=== PATIENT | female | born 1985 | race Caucasian/White ===

== ENCOUNTER 2019-08-14 06:00 | Inpatient (IN) | payer MEDICAID, OTHER ==
[~2019-08-14] VITALS: Ht 172.3 cm; Wt 72.6 kg
[2019-08-14] VITALS (55 sets, daily range): BP systolic 93–123; BP diastolic 58–84
[2019-08-14] MEDS ORDERED: D5 LR IV SOLUTION 1,000 ML IV ONE (07:12)
[2019-08-14] MEDS: D5 LR IV SOLUTION 1,000 ML IV SCH ×2 (07:40→12:23)
[2019-08-14 07:58] LABS: BASOPHILS % (AUTO) 0 % (0-10); EOSINOPHILS # (AUTO) 0.1 10^3/uL (0.0-0.3); EOSINOPHILS % (AUTO) 1 % (0-10); HEMATOCRIT 38 % (35-52); HEMOGLOBIN 12.9 G/DL (11.5-16.0); LYMPHOCYTES # (AUTO) 1.7 X 10^3 (1.0-4.0); LYMPHOCYTES % (AUTO) 20 % (12-44); MEAN CORPUSCULAR HEMOGLOBIN 31 PG (25-34); MEAN CORPUSCULAR HGB CONC 34 G/DL (32-36); MEAN CORPUSCULAR VOLUME 91 FL (80-99); MEAN PLATELET VOLUME 11.7 FL (7.4-10.4); MONOCYTES # (AUTO) 0.8 X 10^3 (0.0-1.0); MONOCYTES % (AUTO) 10 % (0-12); NEUTROPHILS # (AUTO) 5.9 X 10^3 (1.8-7.8); NEUTROPHILS % (AUTO) 69 % (42-75); PLATELET COUNT 232 10^3/uL (130-400); RED CELL DISTRIBUTION WIDTH 13.1 % (10.0-14.5); WHITE BLOOD COUNT 8.6 10^3/uL (4.3-11.0)
[2019-08-14] MEDS ORDERED: OXYTOCIN/NORMAL SALINE 500 ML IV SCH ×2 (08:02→19:31)
[2019-08-14] MEDS ORDERED: SUFENTA 0.6MCG/ML BUPIVA 0.125 100 ML ONE (09:19)
[2019-08-14] MEDS ORDERED: BUPIVACAINE 0.25% 30 ML (SENSORCAINE) VIAL ONE ×2 (09:31→15:44)
[2019-08-14] MEDS ORDERED: fentaNYL INJECTION 100 MCG/2 ML AMP ONE (09:31)
[2019-08-14] MEDS ORDERED: LACTATED RINGERS 1,000 ML IV SCH (09:37)
[2019-08-14] MEDS ORDERED: diphenhydrAMINE 50 MG/ML INJ (BENADRYL) IV PRN (09:45)
[2019-08-14] MEDS ORDERED: ONDANSETRON 4 MG/2 ML (SDV) Z0FRAN IV PRN (09:45)
[2019-08-14] MEDS ORDERED: NALOXONE 0.4 MG/ML 1 ML (NARCAN) VIAL IV PRN ×2 (09:45)
[2019-08-14] MEDS ORDERED: METOCLOPRAMIDE INJ 10 MG/2 ML (REGLAN) IV PRN (09:45)
[2019-08-14] MEDS: EPIDURAL (SUFENTA 0.6MCG/ML BUPIVA 0.125%) 100 ML BAG EPI PRN ×2 (10:02→16:30)
--- NOTE | 2019-08-14 18:16 | History & Physical-OB/GYN ---
History of Present Illness History of Present Illness Reason for visit/HPI Ms. Hull at 39 1/7 weeks gestation was admitted for Pitocin Induction of Labor Date of Admission Aug 14, 2019 at 06:14 Date Seen by a Provider: Aug 14, 2019 Time Seen by a Provider: 09:00 I consulted on this patient on 08/14/19 18:11 Attending Physician Devonte Barr DO Admitting Physician Devonte Barr DO Consult Allergies and Home Medications Allergies Coded Allergies: No Known Drug Allergies (Unverified , 08/14/19) Patient Home Medication List Home Medication List Reviewed: Yes Past Gxekgmh-[id number]-Rjwvdb Hx Patient Social History Marrital Status: single Number of Children: 2 Number of living children: 2 Employed/Student: employed Alcohol Use: Denies Use Recreational Drug Use: No Smoking Status: Never a Smoker Physical Abuse Screen: No Sexual Abuse: No Recent Foreign Travel: No Contact w/other who traveled: No Recent Hopitalizations: No Recent Infectious Disease Expo: No Immunizations Up To Date Date of Influenza Vaccine: Jun 16, 2019 Seasonal Allergies Seasonal Allergies: Yes Surgeries Yes Respiratory No Cardiovascular No Neurological No Reproductive System : Yes Expected Date of Delivery: Aug 20, 2019 Genitourinary No Gastrointestinal No Endocrine History of Endocrine Disorders: No HEENT History of HEENT Disorders: No Cancer No Psychosocial History of Psychiatric Problem: No Integumentary History of Skin or Integumenta: No Blood Transfusions History of Blood Disorders: No Adverse Reaction to a Blood Tr: No Family Medical History Family Hx: Diabetes mellitus 19 FATHER Hypertension 19 FATHER Seizure disorder G8 SISTER Review of Systems Constitutional: see HPI Physical Exam Physical Exam Vital Signs Vital Signs Date Time Temp Pulse Resp B/P (MAP) Pulse Ox O2 Delivery O2 Flow Rate FiO2 08/14/19 16:00 102/61 (75) Room Air 08/14/19 15:45 73 119/78 (92) Room Air 08/14/19 15:30 74 108/73 (85) Room Air 08/14/19 15:15 79 108/73 (85) Room Air 08/14/19 15:00 68 102/70 (81) Room Air 08/14/19 14:45 69 102/68 (79) Room Air 08/14/19 14:30 36.6 71 103/67 (79) Room Air 08/14/19 14:15 67 109/73 (85) Room Air 08/14/19 14:00 74 108/74 (85) Room Air 08/14/19 13:45 36.6 83 16 108/70 (83) Room Air 08/14/19 13:30 75 110/73 (85) Room Air 08/14/19 13:15 75 104/67 (79) Room Air 08/14/19 13:00 68 112/67 (82) Room Air 08/14/19 12:45 75 117/70 (86) Room Air 08/14/19 12:30 73 111/72 (85) Room Air 08/14/19 12:15 36.2 69 114/62 (79) Room Air 08/14/19 12:00 92 16 114/77 (89) Room Air 08/14/19 11:45 70 120/78 (92) Room Air 08/14/19 11:30 81 93/58 (70) 99 Room Air 08/14/19 11:15 68 99/59 (72) 98 Room Air 08/14/19 11:00 68 96/58 (71) 98 Room Air 08/14/19 10:45 36.6 82 16 123/62 (82) 98 Room Air 08/14/19 10:35 69 113/63 (80) 97 Room Air 08/14/19 10:30 75 109/73 (85) 98 Room Air 08/14/19 10:25 72 112/72 (85) 97 Room Air 08/14/19 10:20 80 115/72 (86) 97 Room Air 08/14/19 10:15 90 109/72 (84) 97 Room Air 08/14/19 10:10 86 116/78 (91) 99 Room Air 08/14/19 10:06 93 115/77 (90) 99 Room Air 08/14/19 10:03 100 118/84 (95) Room Air 08/14/19 10:00 90 18 115/70 (85) 100 Room Air 08/14/19 09:45 36.4 87 118/80 (93) Room Air 08/14/19 09:30 74 109/70 (83) Room Air 08/14/19 09:15 81 108/78 (88) Room Air 08/14/19 09:00 73 16 107/71 (83) Room Air 08/14/19 08:45 81 108/70 (83) Room Air 08/14/19 08:30 94 108/70 (83) Room Air 08/14/19 08:00 36.5 08/14/19 07:30 97 16 111/79 (90) 98 Room Air 08/14/19 07:30 36.5 97 16 98 Room Air Capillary Refill : Less Than 3 Seconds Labs Laboratory Tests 08/14/19 07:40: White Blood Count 8.6, Red Blood Count 4.17L, Hemoglobin 12.9, Hematocrit 38, Mean Corpuscular Volume 91, Mean Corpuscular Hemoglobin 31, Mean Corpuscular Hemoglobin Concent 34, Red Cell Distribution Width 13.1, Platelet Count 232, Mean Platelet Volume 11.7H, Neutrophils (%) (Auto) 69, Lymphocytes (%) (Auto) 20, Monocytes (%) (Auto) 10, Eosinophils (%) (Auto) 1, Basophils (%) (Auto) 0, Neutrophils # (Auto) 5.9, Lymphocytes # (Auto) 1.7, Monocytes # (Auto) 0.8, Eosinophils # (Auto) 0.1, Basophils # (Auto) 0.0, Glucose Level 82 08/14/19 12:15: Glucometer 77 08/14/19 16:10: Glucometer 76 General Appearance: No Apparent Distress, WD/WN Respiratory: Chest Non Tender, Lungs Clear, Normal Breath Sounds Cardiovascular: Regular Rate, Rhythm, No Murmur Abdominal: normal bowel sounds Labia: WNL Vagina: WNL Cervix: WNL Cervix OS: other (1 cm/50%/-3 Vertex/Intact) Extremity: Normal Inspection, Non Tender Assessment/Plan Assessment and Plan Assessment: Intrauterine at 39 1/7 weeks 2. GDM (diet controlled) Plan: Pitocin Induction of Labor. AROM. Epidural anesthesia. I expect a normal spontaneous vaginal delivery Admission Diagnosis Admission Status: Inpatient Order (span 2 midnights) Reason for Inpatient Admission: Intrauterine at 39 1/7 weeks 2. GDM (diet controlled) Clinical Quality Measures DVT/VTE Risk/Contraindication: Risk Factor Score Per Nursin RFS Level Per Nursing on Admit: 1=Low/No VTE PPX DEVONTE BARR DO Aug 14, 2019 18:16
--- NOTE | 2019-08-14 18:19 | Labor Progress Note ---
Labor Progress Note Labor Progress Note Date Seen by Provider: Aug 14, 2019 Time Seen by Provider: 18:00 Subjective: Pt denies complaints. Objective: (Can we insert 24 hour vitals here?) Cervical exam: [6 cm/80/-3 Vertex/AROM] Consistency: [80%] Position: [-3] Presentation: [Vertex] heart tones: [130] beats per minute, [moderate] variability, [] reactive Tocometer: [3] ctx/10 minutes Assessment/Plan: Trisha Hull is a (34 /Para / ,Gestational Age (wks)39 here for []. CEFM/TOCO Continue pitocin/[] Anesthesia:[Epidural] Anticipate vaginal delivery. Noted bloody show, strip continues to be reactive. Occasional variable deceleration. Vitals - Labs Vital Signs - I&O Vital Signs Date Time Temp Pulse Resp B/P (MAP) Pulse Ox O2 Delivery O2 Flow Rate FiO2 08/14/19 16:00 102/61 (75) Room Air 08/14/19 15:45 73 119/78 (92) Room Air 08/14/19 15:30 74 108/73 (85) Room Air 08/14/19 15:15 79 108/73 (85) Room Air 08/14/19 15:00 68 102/70 (81) Room Air 08/14/19 14:45 69 102/68 (79) Room Air 08/14/19 14:30 36.6 71 103/67 (79) Room Air 08/14/19 14:15 67 109/73 (85) Room Air 08/14/19 14:00 74 108/74 (85) Room Air 08/14/19 13:45 36.6 83 16 108/70 (83) Room Air 08/14/19 13:30 75 110/73 (85) Room Air 08/14/19 13:15 75 104/67 (79) Room Air 08/14/19 13:00 68 112/67 (82) Room Air 08/14/19 12:45 75 117/70 (86) Room Air 08/14/19 12:30 73 111/72 (85) Room Air 08/14/19 12:15 36.2 69 114/62 (79) Room Air 08/14/19 12:00 92 16 114/77 (89) Room Air 08/14/19 11:45 70 120/78 (92) Room Air 08/14/19 11:30 81 93/58 (70) 99 Room Air 08/14/19 11:15 68 99/59 (72) 98 Room Air 08/14/19 11:00 68 96/58 (71) 98 Room Air 08/14/19 10:45 36.6 82 16 123/62 (82) 98 Room Air 08/14/19 10:35 69 113/63 (80) 97 Room Air 08/14/19 10:30 75 109/73 (85) 98 Room Air 08/14/19 10:25 72 112/72 (85) 97 Room Air 08/14/19 10:20 80 115/72 (86) 97 Room Air 08/14/19 10:15 90 109/72 (84) 97 Room Air 08/14/19 10:10 86 116/78 (91) 99 Room Air 08/14/19 10:06 93 115/77 (90) 99 Room Air 08/14/19 10:03 100 118/84 (95) Room Air 08/14/19 10:00 90 18 115/70 (85) 100 Room Air 08/14/19 09:45 36.4 87 118/80 (93) Room Air 08/14/19 09:30 74 109/70 (83) Room Air 08/14/19 09:15 81 108/78 (88) Room Air 08/14/19 09:00 73 16 107/71 (83) Room Air 08/14/19 08:45 81 108/70 (83) Room Air 08/14/19 08:30 94 108/70 (83) Room Air 08/14/19 08:00 36.5 08/14/19 07:30 97 16 111/79 (90) 98 Room Air 08/14/19 07:30 36.5 97 16 98 Room Air Labs Laboratory Tests 08/14/19 07:40: White Blood Count 8.6, Red Blood Count 4.17L, Hemoglobin 12.9, Hematocrit 38, Mean Corpuscular Volume 91, Mean Corpuscular Hemoglobin 31, Mean Corpuscular Hemoglobin Concent 34, Red Cell Distribution Width 13.1, Platelet Count 232, Mean Platelet Volume 11.7H, Neutrophils (%) (Auto) 69, Lymphocytes (%) (Auto) 20, Monocytes (%) (Auto) 10, Eosinophils (%) (Auto) 1, Basophils (%) (Auto) 0, Neutrophils # (Auto) 5.9, Lymphocytes # (Auto) 1.7, Monocytes # (Auto) 0.8, Eosinophils # (Auto) 0.1, Basophils # (Auto) 0.0, Glucose Level 82 08/14/19 12:15: Glucometer 77 08/14/19 16:10: Glucometer 76 ANDREA ORTIZ DO Aug 14, 2019 18:19
[2019-08-14] MEDS ORDERED: LIDOCAINE 1% INJ 20 ML 20 ML VIAL ONE ×2 (18:49→19:05)
--- NOTE | 2019-08-14 19:37 | OB Labor & Delivery Record ---
Vag Delivery Note Vag Delivery Note Date of Delivery: 08/14/19 Preoperative Diagnosis: Trisha Hull is a (34 /Para / ,Gestational Age (wks)39with [Gestational Diabetes--diet controlled] Postoperative Diagnosis: Same Surgeon: ANDREA ORTIZ Cardiopulmonary Technician And Eeg Tech: [] Anesthesia: [Epidural and Local] Delivery Type: [Normal Vaginal Delivery with Midline Episiotomy] Findings: [] Viable [Male] infant, apgars [], weight [7 lb 7 oz] Lacerations: Midline episiotomy and standard repair Intact placenta with 3 vessel cord. No nuchal cord, body cord or shoulder dystocia Estimated Blood Loss: [300] ml Complications: None Condition: Stable Description of Procedure: The patient is a 34 year old female who presented [for Pitocin Induction of Labor]. She was admitted and informed consent was obtained. Her labor course was unremarkable. She progressed to complete dilatation and began to push. She was then set up for delivery. The 's head was delivered atraumatically in the [JENNIFER] position. The shoulders and remainder of the 's body were then delivered without difficulty. Upon delivery, the head was held below the level of the perineum and the mouth and nares were bulb suctioned. The cord was doubly clamped and cut and the infant was handed off to the pediatric staff. An intact placenta with 3-vessel cord delivered via Daina and there was found to be minimal bleeding.~ Vigorous fundal massage was performed and the fundus was found to be firm. IV oxytocin was given. Examination of the vagina and perineum revealed only the midline episiotomy no extended laceration repaired in the usual fashion with 2-0 and 3-0 vicryl suture. Following the repair, sponge, instrument and needle counts were correct. Mom and baby were both in stable condition in the labor suite. Vitals - Labs Vital Signs - I&O Vital Signs Date Time Temp Pulse Resp B/P (MAP) Pulse Ox O2 Delivery O2 Flow Rate FiO2 08/14/19 18:00 70 100/63 (75) Room Air 08/14/19 17:45 70 120/75 (90) Room Air 08/14/19 17:30 77 115/81 (92) Room Air 08/14/19 17:15 75 108/73 (85) Room Air 08/14/19 17:00 36.3 78 16 115/71 (86) Room Air 08/14/19 16:45 74 108/73 (85) Room Air 08/14/19 16:30 76 112/74 (87) Room Air 08/14/19 16:15 Room Air 08/14/19 16:00 102/61 (75) Room Air 08/14/19 15:45 73 119/78 (92) Room Air 08/14/19 15:30 74 108/73 (85) Room Air 08/14/19 15:15 79 108/73 (85) Room Air 08/14/19 15:00 68 102/70 (81) Room Air 08/14/19 14:45 69 102/68 (79) Room Air 08/14/19 14:30 36.6 71 103/67 (79) Room Air 08/14/19 14:15 67 109/73 (85) Room Air 08/14/19 14:00 74 108/74 (85) Room Air 08/14/19 13:45 36.6 83 16 108/70 (83) Room Air 08/14/19 13:30 75 110/73 (85) Room Air 08/14/19 13:15 75 104/67 (79) Room Air 08/14/19 13:00 68 112/67 (82) Room Air 08/14/19 12:45 75 117/70 (86) Room Air 08/14/19 12:30 73 111/72 (85) Room Air 08/14/19 12:15 36.2 69 114/62 (79) Room Air 08/14/19 12:00 92 16 114/77 (89) Room Air 08/14/19 11:45 70 120/78 (92) Room Air 08/14/19 11:30 81 93/58 (70) 99 Room Air 08/14/19 11:15 68 99/59 (72) 98 Room Air 08/14/19 11:00 68 96/58 (71) 98 Room Air 08/14/19 10:45 36.6 82 16 123/62 (82) 98 Room Air 08/14/19 10:35 69 113/63 (80) 97 Room Air 08/14/19 10:30 75 109/73 (85) 98 Room Air 08/14/19 10:25 72 112/72 (85) 97 Room Air 08/14/19 10:20 80 115/72 (86) 97 Room Air 08/14/19 10:15 90 109/72 (84) 97 Room Air 08/14/19 10:10 86 116/78 (91) 99 Room Air 08/14/19 10:06 93 115/77 (90) 99 Room Air 08/14/19 10:03 100 118/84 (95) Room Air 08/14/19 10:00 90 18 115/70 (85) 100 Room Air 08/14/19 09:45 36.4 87 118/80 (93) Room Air 08/14/19 09:30 74 109/70 (83) Room Air 08/14/19 09:15 81 108/78 (88) Room Air 08/14/19 09:00 73 16 107/71 (83) Room Air 08/14/19 08:45 81 108/70 (83) Room Air 08/14/19 08:30 94 108/70 (83) Room Air 08/14/19 08:00 36.5 08/14/19 07:30 97 16 111/79 (90) 98 Room Air 08/14/19 07:30 36.5 97 16 98 Room Air Labs Laboratory Tests 08/14/19 07:40: White Blood Count 8.6, Red Blood Count 4.17L, Hemoglobin 12.9, Hematocrit 38, Mean Corpuscular Volume 91, Mean Corpuscular Hemoglobin 31, Mean Corpuscular Hemoglobin Concent 34, Red Cell Distribution Width 13.1, Platelet Count 232, Mean Platelet Volume 11.7H, Neutrophils (%) (Auto) 69, Lymphocytes (%) (Auto) 20, Monocytes (%) (Auto) 10, Eosinophils (%) (Auto) 1, Basophils (%) (Auto) 0, Neutrophils # (Auto) 5.9, Lymphocytes # (Auto) 1.7, Monocytes # (Auto) 0.8, Eosinophils # (Auto) 0.1, Basophils # (Auto) 0.0, Glucose Level 82 08/14/19 12:15: Glucometer 77 08/14/19 16:10: Glucometer 76 ANDREA ORTIZ DO Aug 14, 2019 19:37
[2019-08-14] MEDS ORDERED: WITCH HAZEL(TUCKS) 40 EA JAR TOP PRN (19:45)
[2019-08-14] MEDS ORDERED: BENZOCAINE/MENTHOL (DERMOPLAST) 60 ML CAN TP PRN (19:45)
[2019-08-14] MEDS ORDERED: DIBUCAINE (NUPERCAINAL) 1% OINT 30 GM TOP PRN (19:45)
[2019-08-14] MEDS ORDERED: MEASLES,MUMPS,RUBELLA 1 EA INJ SQ ONE (19:45)
[2019-08-14] MEDS ORDERED: TETANUS,DIPTH,PERTUSS P/F (BOOSTRIX) 0.5 ML VIAL IM ONE (19:45)
[2019-08-14] MEDS: IBUPROFEN 800 MG (MOTRIN) TAB PO SCH (20:41)
[2019-08-14] MEDS ORDERED: DOCUSATE SODIUM 100 MG (COLACE) CAP PO SCH (21:00)
[2019-08-14] MEDS ORDERED: CATHETER FLUSH 10 ML SYR IV SCH (22:00)
[2019-08-15] VITALS: BP 101/60
[2019-08-15] MEDS: ACETAMINOPHEN 500 MG TAB (TYLENOL) PO SCH ×4 (00:08→17:51)
[2019-08-15] MEDS: IBUPROFEN 800 MG (MOTRIN) TAB PO SCH ×2 (04:26→11:54)
[2019-08-15 04:30] VITALS: BP 102/74
[2019-08-15 04:47] LABS: BASOPHILS % (AUTO) 0 % (0-10); EOSINOPHILS # (AUTO) 0.1 10^3/uL (0.0-0.3); EOSINOPHILS % (AUTO) 1 % (0-10); HEMATOCRIT 33 % (35-52); HEMOGLOBIN 11.1 G/DL (11.5-16.0); LYMPHOCYTES # (AUTO) 1.7 X 10^3 (1.0-4.0); LYMPHOCYTES % (AUTO) 16 % (12-44); MEAN CORPUSCULAR HEMOGLOBIN 31 PG (25-34); MEAN CORPUSCULAR HGB CONC 34 G/DL (32-36); MEAN CORPUSCULAR VOLUME 93 FL (80-99); MEAN PLATELET VOLUME 11.3 FL (7.4-10.4); MONOCYTES # (AUTO) 0.9 X 10^3 (0.0-1.0); MONOCYTES % (AUTO) 9 % (0-12); NEUTROPHILS # (AUTO) 7.6 X 10^3 (1.8-7.8); NEUTROPHILS % (AUTO) 74 % (42-75); PLATELET COUNT 216 10^3/uL (130-400); RED CELL DISTRIBUTION WIDTH 13.1 % (10.0-14.5); WHITE BLOOD COUNT 10.3 10^3/uL (4.3-11.0)
[2019-08-15] MEDS ORDERED: PRENATAL VITAMIN 1 EA TAB PO SCH (07:00)
--- NOTE | 2019-08-15 07:12 | Anesthesia-General Post-Op ---
MAC Patient Condition Mental Status/LOC: Same as Preop Cardiovascular: Satisfactory Nausea/Vomiting: Absent Respiratory: Satisfactory Pain: Controlled Complications: Absent Post Op Complications Complications None Follow Up Care/Instructions Patient Instructions None needed. Anesthesiology Discharge Order Discharge Order Patient is doing well, no complaints, stable vital signs, no apparent adverse anesthesia problems. No complications reported per nursing. CHRISTIANO HEREDIA CRNA Aug 15, 2019 07:12
[2019-08-15] MEDS ORDERED: DOCU-244 PO (07:13)
[2019-08-15] MEDS ORDERED: OXC5T PO (07:13)
[2019-08-15] MEDS ORDERED: IBUP-1780 PO (07:13)
[2019-08-15] MEDS ORDERED: ACET-93 PO (07:13)
--- NOTE | 2019-08-15 07:18 | Discharge Summary ---
Diagnosis/Chief Complaint Date of Admission Aug 14, 2019 at 06:14 Date of Discharge August 15, 2019 Discharge Date: Aug 15, 2019 Discharge Time: 19:30 Admission Diagnosis Admission Diagnosis Intrauterine at 39 1/7 weeks 2. Gestational Diabetes--diet controlled Discharge Diagnosis Intrauterine at 39 1/7 weeks--delivered 2. Gestational Diabetes--diet controlled Reason Hospital Visit Ms. Hull at 39 1/7 weeks gestation was admitted for Pitocin Induction of Labor Discharge Summary Hospital Course Was the Problem List Reviewed?: Yes Hospital Course Ms. Hull, A0 at 39 1/7 weeks with Gestational Diabetes, was admitted for Pitocin Induction of Labor. She received an epidural for antepartum pain management. I artificially ruptured her membranes. She progressed to complete. After a short course of pushing, delivered a healthy viable male . , she was started on oral pain medications and comfort measures. Her vital signs remained stable throughout her hospitalization. We will discharge her to home with instructions, prescriptions and a follow up appointment. Labs Laboratory Tests 08/14/19 07:40: Red Blood Count 4.17L, Mean Platelet Volume 11.7H 08/14/19 12:15: 08/14/19 16:10: 08/15/19 04:32: Red Blood Count 3.56L, Mean Platelet Volume 11.3H, Hemoglobin 11.1L, Hematocrit 33L Procedures None. Discharge Physical Examination Allergies: Coded Allergies: No Known Drug Allergies (Unverified , 08/14/19) Vitals & I&Os Vital Signs Date Time Temp Pulse Resp B/P (MAP) Pulse Ox O2 Delivery O2 Flow Rate FiO2 08/15/19 04:30 36.2 71 18 102/74 (83) 96 Room Air General Appearance: Alert, Oriented X3, Cooperative HEENT: Atraumatic Respiratory: Clear to Auscultation, Normal Air Movement Cardiovascular: Regular Rate, No Murmurs Abdominal: Normal Bowel Sounds, No Tenderness Extremities: No Clubbing, No Cyanosis, No Edema Skin: No Rashes Neuro: Normal Gait, Normal Speech Psych/Mental Status: Mental Status NL Discharge Home Medications Reviewed and agree with Discharge Medication list on patient's Discharge Instruction sheet Instructions to Patient/Family Please see electronic discharge instructions given to patient. Clinical Quality Measures DVT/VTE Risk/Contraindication: Risk Factor Score Per Nursin RFS Level Per Nursing on Admit: 1=Low/No VTE PPX SEALS,ANDREA E DO Aug 15, 2019 07:18
[2019-08-15 09:30] VITALS: BP 107/64
[2019-08-15 12:30] VITALS: BP 105/72
[2019-08-15 17:45] VITALS: BP 110/67
[2019-08-15 19:05] VITALS: BP 110/67
== END 2019-08-15 19:05 | disposition home or self-care (01) | DRG 807 ==
LOC: LDRP 06:14
PROVIDERS: ADMIT Obstetrics & Gynecology; ATTEND Obstetrics & Gynecology
PROC: 10E0XZZ Delivery of Products of Conception, External Approach (ICD-10-PCS; principal; 2019-08-14)
PROC: 3E033VJ Introduction of Other Hormone into Peripheral Vein, Percutaneous Approach (ICD-10-PCS; 2019-08-14)
PROC: 10907ZC Drainage of Amniotic Fluid, Therapeutic from Products of Conception, Via Natural or Artificial Opening (ICD-10-PCS; 2019-08-14)
PROC: 0W8NXZZ Division of Female Perineum, External Approach (ICD-10-PCS; 2019-08-14)
DX: O24.420 Gestational diabetes mellitus in childbirth, diet controlled (principal); Z37.0 Single live birth; Z3A.39 39 weeks gestation of pregnancy; O76 Abnormality in fetal heart rate and rhythm complicating labor and delivery; Z23 Encounter for immunization
CPT/HCPCS: 36415; 82947; 82962; 85025; 86850; 86900; 86901; 90715

== ENCOUNTER 2021-01-08 16:46 | Emergency (ER) | payer MEDICAID ==
[~2021-01-08 16:46] MED LIST: ACET-93 PO; DCS100C PO; IBUP-1780 PO; OXC5T PO
--- OUTSIDE RECORDS SUMMARY | 2021-03-16 16:49 | XMS REPORT | Clinical Summary ---
Author Author [facility] Organization [facility] Address Unknown Phone Unavailable Care Team Providers Care Scrap Yard Worker Name Role Phone No Pcp, Na PCP Unavailable Source Comments Some departments are not documenting in the electronic medical record. If you d o not see the information that you expected, contact Release of Information in [facility] Information Management department at [phone] for further assistan ce in locating additional records.[facility] Allergies No Known Active Allergies Medications No known medications Active Problems Problem Noted Date Passive suicidal ideations 03/27/2018 Alcohol abuse 03/25/2018 Heroin abuse 03/25/2018 Methamphetamine abuse 03/25/2018 Surgical History Surgery Date Site/Laterality Comments HERNIA REPAIR Medical History Medical History Date Comments Pancreatitis Family History Medical History Relation Name Comments Cancer-Colon Maternal Grandfather Alcohol abuse Sister Relation Name Status Comments Maternal Grandfather Sister Social History Date Tobacco Use Types Packs/Day Years Used Current Every Day Smoker 1 12 Smokeless Tobacco: Never Used Comments Alcohol Use Standard Drinks/Week Yes 0 (1 standard drink = 0.6 o z pure alcohol) Sex Assigned at Date Recorded Not on file Last Filed Vital Signs Reading Time Taken Comments Vital Sign 129/93 03/28/2018 3:15 PM CDT pt stated she is anxious due to the fact she cant have a cig Blood Pressure 106 03/28/2018 3:15 PM CDT Pulse 36.7 C (98.1 F) 03/28/2018 3:15 PM CDT Temperature - - Respiratory Rate 99% 03/28/2018 3:15 PM CDT Oxygen Saturation - - Inhaled Oxygen Concentration 54.4 kg (120 lb) 03/26/2018 12:21 PM CDT Weight 172.7 cm (5' 8") 03/26/2018 12:21 PM CDT Height 18.25 03/26/2018 12:21 PM CDT Body Mass Index Plan of Treatment Health Maintenance Due Date Last Done Comments DTAP/TDAP VACCINES (1 - 2003 Tdap) PHYSICAL (COMPREHENSIVE) 2003 EXAM CERVICAL CANCER SCREENING 2006 INFLUENZA VACCINE 04/29/2021 HEPATITIS C SCREENING Completed 03/26/2018 HIV SCREENING Completed 03/26/2018 Results Not on filefrom Last 3 Months Insurance Type Payer Benefit Subscriber ID Effective Phone Address Plan / Dates Group Medicaid [facility] MEDICAID [facility] [id number] 2017-P [place] [place] [id number] 1 Advance Directives Patient Compounding Scaler Explanation Type Date Recorded Advance 03/25/2018 2:35 AM Directive/DPOA Date Inactivated Comments Code Status Date Activated 03/28/2018 6:48 PM Full Code 03/25/2018 10:18 AM Provider has discussed Code Status Yes w/Patient or Family?
== END 2021-01-08 17:00 | disposition left against medical advice (07) ==
LOC: EDUNIT# 16:46 → ER FS 16:47
DX: S61.452A Open bite of left hand, initial encounter (principal); W55.01XA Bitten by cat, initial encounter